=== PATIENT | male | born 1950 | race Two or more races ===

== ENCOUNTER → 2023-10-31 | Outpatient (CLI) | payer MEDICAID ==
[2023-10-31 10:54] LABS: Basophils # (auto) 0 10 ^3/uL (0-0.2); Basophils % (auto) 0.5 % (0.0-2.0); Eosinophils # (auto) 0.1 10 ^3/uL (0-0.8); Eosinophils % (auto) 1.7 % (0.0-7.0); Hematocrit 47.2 % (41.0-53.0); Hemoglobin 15.9 g/dL (13.5-17.5); Lymphocytes # (auto) 1.8 10 ^3/uL (0.4-5.4); Lymphocytes % (auto) 31.7 % (10.0-50.0); Mean Corpuscular Hemoglobin 31.7 pg (28.0-32.0); Mean Corpuscular Hgb Conc. 33.8 g/dL (32.0-36.0); Mean Corpuscular Volume 93.9 fL (80.0-100.0); Monocytes # (auto) 0.4 10 ^3/uL (0-1.3); Monocytes % (auto) 7.8 % (0.0-12.0); Neutrophils # (auto) 3.4 10 ^3/uL (1.6-8.6); Neutrophils % (auto) 58.3 % (37.0-80.0); Nucleated Red Blood Cells % 0.3 %; Red Blood Cells 5.02 10^6/uL (4.5-5.90); Red Cell Distribution Width 13.8 % (11.8-14.3); White Blood Cell 5.8 10^3/uL (4.4-10.8)
[2023-10-31 11:23] LABS: Alanine Aminotransferase 23 U/L (7-40); Albumin 4.6 g/dL (3.2-4.8); Alkaline Phosphatase 171 U/L (46-116); Anion Gap 7 (5-15); Aspartate Aminotransferase 23 U/L (13-40); BUN/Creatinine Ratio 16.2 (10.0-20.0); Blood Urea Nitrogen 16 mg/dL (9-23); Calcium 9.8 mg/dL (8.5-10.1); Carbon Dioxide 28 mmol/L (20-30); Chloride 107 mmol/L (98-107); Cholesterol 181 mg/dL (< 200); Glucose 103 mg/dL (74-106); HDL Cholesterol 34 mg/dL (40-59); LDL Cholesterol 128 mg/dL (< 100); Potassium 4.3 mmol/L (3.5-5.1); Sodium 142 mmol/L (136-145); Triglycerides 136 mg/dL (< 150)
[2023-10-31 11:24] LABS: Bilirubin, Total 0.7 mg/dL (0.2-1.0); Total Protein 7.8 g/dL (5.7-8.2)
[2023-10-31 11:55] LABS: Urine Bacteria NONE SEEN /hpf (None Seen); Urine Blood Negative /uL (Negative); Urine Clarity Clear (Clear); Urine Color Yellow (Yellow); Urine Hyaline Cast FEW /lpf (0 - 2); Urine Mucus FEW (None Seen); Urine Protein, UAD TRACE (Negative); Urine Specific Gravity 1.029 (1.001-1.035); Urine WBC <1 /hpf (0 - 3); Urine pH 5.5 (5.0-8.0)
[2023-11-01 09:20] LABS: PSA Free 1.21 ng/mL; Prostate Specific Antigen 7.3 ng/mL (0.0-4.0)
== END | disposition home or self-care (01) ==
LOC: LAB 10:14
DX: Z12.5 Encounter for screening for malignant neoplasm of prostate (principal); Z12.11 Encounter for screening for malignant neoplasm of colon; Z00.01 Encounter for general adult medical examination with abnormal findings
CPT/HCPCS: 36415; 80053; 80061; 81001; 82306; 83036; 84153; 84154; 84443; 85025

== ENCOUNTER → 2023-11-04 | Outpatient (CLI) | payer MEDICAID | END | disposition home or self-care (01) | LOC: LAB 14:19 | DX: Z00.01 Encounter for general adult medical examination with abnormal findings (principal); Z12.11 Encounter for screening for malignant neoplasm of colon; Z12.5 Encounter for screening for malignant neoplasm of prostate | CPT/HCPCS: 82274 ==

== ENCOUNTER → 2023-12-18 | Outpatient (CLI) | payer MEDICAID ==
[2023-12-19 08:06] LABS: PSA Free 1.33 ng/mL; Prostate Specific Antigen 7.4 ng/mL (0.0-4.0)
== END | disposition home or self-care (01) ==
LOC: LAB 09:24
DX: R97.20 Elevated prostate specific antigen [PSA] (principal)
CPT/HCPCS: 84153; 84154

== ENCOUNTER → 2024-03-08 | Outpatient (CLI) | payer MEDICAID ==
[2024-03-08 09:34] LABS: Urine Bacteria None Seen /hpf (None Seen)
[2024-03-08 09:41] LABS: Basophils # (auto) 0 10 ^3/uL (0-0.2); Basophils % (auto) 0.5 % (0.0-2.0); Eosinophils # (auto) 0.1 10 ^3/uL (0-0.8); Eosinophils % (auto) 2.3 % (0.0-7.0); Hematocrit 45.5 % (41.0-53.0); Hemoglobin 15.5 g/dL (13.5-17.5); Lymphocytes # (auto) 2.2 10 ^3/uL (0.4-5.4); Lymphocytes % (auto) 40.3 % (10.0-50.0); Mean Corpuscular Hemoglobin 31.2 pg (28.0-32.0); Mean Corpuscular Hgb Conc. 33.9 g/dL (32.0-36.0); Mean Corpuscular Volume 91.9 fL (80.0-100.0); Monocytes # (auto) 0.5 10 ^3/uL (0-1.3); Monocytes % (auto) 8.9 % (0.0-12.0); Neutrophils # (auto) 2.7 10 ^3/uL (1.6-8.6); Nucleated Red Blood Cells % 0.4 %; Red Blood Cells 4.95 10^6/uL (4.5-5.90); Red Cell Distribution Width 14.1 % (11.8-14.3); White Blood Cell 5.6 10^3/uL (4.4-10.8)
[2024-03-08 10:00] LABS: Urine Blood TRACE /uL (Negative); Urine Clarity Clear (Clear); Urine Color Yellow (Yellow); Urine Mucus FEW (None Seen); Urine Protein, UAD TRACE (Negative); Urine Specific Gravity 1.032 (1.001-1.035); Urine Urobilinogen Normal (Negative); Urine WBC <1 /hpf (0 - 3); Urine pH 5.5 (5.0-9.0)
[2024-03-08 10:24] LABS: Alanine Aminotransferase 15 U/L (7-40); Alkaline Phosphatase 170 U/L (46-116); Anion Gap 7 (5-15); BUN/Creatinine Ratio 17.4 (10.0-20.0); Blood Urea Nitrogen 15 mg/dL (9-23); Calcium 9.7 mg/dL (8.5-10.1); Carbon Dioxide 26 mmol/L (20-30); Chloride 109 mmol/L (98-107); Glucose 110 mg/dL (74-106); LDL Cholesterol 107 mg/dL (< 100); Potassium 3.8 mmol/L (3.5-5.1); Sodium 142 mmol/L (136-145); Triglycerides 74 mg/dL (< 150)
[2024-03-08 10:25] LABS: Albumin 4.3 g/dL (3.2-4.8); Aspartate Aminotransferase 14 U/L (13-40); Bilirubin, Total 0.5 mg/dL (0.2-1.0); Cholesterol 154 mg/dL (< 200); HDL Cholesterol 39 mg/dL (40-59); Total Protein 7.3 g/dL (5.7-8.2)
== END | disposition home or self-care (01) ==
LOC: LAB 09:22
PROVIDERS: ATTEND Student in an Organized Health Care Education/Training Program
DX: I10 Essential (primary) hypertension (principal); E78.5 Hyperlipidemia, unspecified; E55.9 Vitamin D deficiency, unspecified
CPT/HCPCS: 36415; 80053; 80061; 81001; 82306; 83036; 85025

== ENCOUNTER → 2025-03-15 | Outpatient (CLI) | payer MEDICAID ==
[2025-03-15 09:10] LABS: Urine Bacteria None Seen /hpf (None Seen)
[2025-03-15 09:16] LABS: Basophils # (auto) 0 10 ^3/uL (0-0.2); Basophils % (auto) 0.4 % (0.0-2.0); Eosinophils # (auto) 0.1 10 ^3/uL (0-0.8); Eosinophils % (auto) 2.5 % (0.0-7.0); Lymphocytes # (auto) 1.9 10 ^3/uL (0.4-5.4); Lymphocytes % (auto) 35.6 % (10.0-50.0); Mean Corpuscular Hemoglobin 31.2 pg (28.0-32.0); Mean Corpuscular Hgb Conc. 34.1 g/dL (32.0-36.0); Mean Corpuscular Volume 91.5 fL (80.0-100.0); Monocytes # (auto) 0.5 10 ^3/uL (0-1.3); Monocytes % (auto) 8.8 % (0.0-12.0); Neutrophils # (auto) 2.8 10 ^3/uL (1.6-8.6); Neutrophils % (auto) 52.7 % (37.0-80.0); Nucleated Red Blood Cells % 0.2 %; Platelet Count (auto) 219 10^3/uL (140-450); Red Blood Cells 5.13 10^6/uL (4.5-5.90); Red Cell Distribution Width 13.7 % (11.8-14.3); White Blood Cell 5.3 10^3/uL (4.4-10.8)
[2025-03-15 09:27] LABS: Urine Blood Negative /uL (Negative); Urine Clarity Clear (Clear); Urine Color Yellow (Yellow); Urine Mucus FEW (None Seen); Urine Protein, UAD Negative (Negative); Urine Specific Gravity 1.027 (1.001-1.035); Urine Squamous Epithelial Cell None Seen /hpf (<5); Urine Urobilinogen Normal (Negative); Urine WBC 1 /HPF (0-3); Urine pH 5.5 (5.0-9.0)
[2025-03-15 09:37] LABS: Alanine Aminotransferase 29 U/L (7-40); Albumin 4.5 g/dL (3.2-4.8); Alkaline Phosphatase 150 U/L (46-116); Anion Gap 10 (5-15); Aspartate Aminotransferase 18 U/L (13-40); BUN/Creatinine Ratio 19.5 (10.0-20.0); Blood Urea Nitrogen 16 mg/dL (9-23); Calcium 10.3 mg/dL (8.7-10.4); Carbon Dioxide 26 mmol/L (20-31); Chloride 107 mmol/L (98-107); Cholesterol 189 mg/dL (< 200); Glucose 121 mg/dL (74-106); HDL Cholesterol 37 mg/dL (40-59); LDL Cholesterol 140 mg/dL (< 100); Potassium 3.9 mmol/L (3.5-5.1); Sodium 143 mmol/L (136-145); Total Protein 7.3 g/dL (5.7-8.2); Triglycerides 132 mg/dL (< 150)
[2025-03-15 09:38] LABS: Bilirubin, Total 0.7 mg/dL (0.2-1.0)
[2025-03-16 08:07] LABS: PSA Free 1.49 ng/mL; Prostate Specific Antigen 9.5 ng/mL (0.0-4.0)
[2025-03-16 10:52] LABS: Hepatitis B Core Total AB Negative (Negative)
[2025-03-16 12:19] LABS: Hepatitis A Total Antibody Positive (Negative); Hepatitis B Surface Antibody Negative (Negative); Hepatitis B Surface Antigen Negative (Negative); Hepatitis C Antibody Negative (Negative)
== END | disposition home or self-care (01) ==
LOC: LAB 08:30
PROVIDERS: ATTEND Nurse Practitioner Family
DX: I10 Essential (primary) hypertension (principal); Z12.11 Encounter for screening for malignant neoplasm of colon; Z12.5 Encounter for screening for malignant neoplasm of prostate; Z11.3 Encounter for screening for infections with a predominantly sexual mode of transmission; Z00.01 Encounter for general adult medical examination with abnormal findings
CPT/HCPCS: 36415; 80053; 80061; 81001; 83036; 84153; 84154; 84443; 85025; 86703; 86704; 86706; 86708; 86780; 86803; 87340

== ENCOUNTER 2025-03-20 16:42 | Emergency (ER) | payer MEDICAID, OTHER ==
[~2025-03-20] VITALS: Ht 167.6 cm; Wt 75.4 kg
--- NOTE | 2025-03-20 16:58 | ECG ---
[facility] Test Date: 2025-03-20 Test Time: 16:54:07 Pat Name: HAYLEE CHAUHAN Department: ED Room: Gender: M [employer] Titles: Cierra : 1950 Requested By: JAIME MUIR Order Number: [id number] Reading MD: Miguel King Measurements Intervals Ivor Rate: 70 P: -70 UT: 97 QRS: 111 QRSD: 115 T: -7 QT: 399 QTc: 431 Interpretive Statements Sinus or ectopic atrial rhythm Short UT interval Nonspecific intraventricular conduction delay Electronically Signed On 03-20-2025 22:37:54 PDT by Miguel King Please click the below link to view image of tracing.
[2025-03-20 17:15] LABS: Urine Bacteria None Seen /hpf (None Seen)
--- NOTE | 2025-03-20 17:16 | ED.PDOC ---
History of Present Illness HPI Comments 74-year-old male presents with a chief complaint of abdominal pain x 5 days with associated diarrhea and nausea. Patient reports that his pain is localized to his epigastric region, radiating bilateral mid and lower quadrants, bilateral flanks and low back, describes as cramping, and rates his pain a 8/10. Patient states that he took three tablets of antibiotics at home, possibly Tetracycline, with no relief. Patient denies any fever, urinary symptoms, vomiting or bloody stool. Chief Complaint: Abdominal Pain Time Seen by MD: 16:52 Primary Care Provider: UNKNOWN Reviewed Notes: Medications, Allergies Allergies: Coded Allergies: NO KNOWN ALLERGIES (Unverified , 03/20/25) Home Meds Active Scripts Loperamide Hcl (Imodium) 2 Mg Cp, 2 MG PO Q6HP PRN, #20 CAP prn diarrhea Prov:JAIME BENTLEY MD 03/20/25 Acetaminophen (Tylenol Extra Strength) 500 Mg Tab, 1000 MG PO Q6HP PRN, #30 TAB prn pain or fever Prov:JAIME BENTLEY MD 03/20/25 Ondansetron Odt 4MG Tab (ZOFRAN PO) 4 Mg Tb, 4 MG PO TID PRN, #30 TAB prn nausea/vomiting ODT TAB-DISSOLVE IN MOUTH, THEN SWALLOW Prov:JAIME BENTLEY MD 03/20/25 Metronidazole (Flagyl) 500 Mg Tab, 1 TAB PO TID for 10 Days, #30 TAB Prov:JAIME BENTLEY MD 03/20/25 Ciprofloxacin Hcl (Cipro) 500 Mg Tab, 1 TAB PO BID for 10 Days, #20 TAB Prov:JAIME BENTLEY MD 03/20/25 Information Source: Patient Mode of Arrival: Ambulatory Severity: Moderate Timing: Days Duration: Since onset Prehospital treatment: None Past Medical History PAST MEDICAL HISTORY: Denies Surgical History: Appendectomy Surgical History (Other): Intestinal fistula repair Family History Family History: Reviewed,noncontributory to illness Social History Smoker: Non-Smoker Alcohol: Denies ETOH Use Drugs: Denies Drug Use Lives In: Home Constitutional: denies: chills, diaphoresis, fatigue, fever, malaise, sweats, weakness, others EENTM: denies: blurred vision, double vision, ear bleeding, ear discharge, ear drainage, ear pain, ear ringing, eye pain, eye redness, hearing loss, mouth pain, mouth swelling, nasal discharge, nose bleeding, nose congestion, nose p ain, photophobia, tearing, throat pain, throat swelling, voice changes, others Respiratory: denies: cough, hemoptysis, orthopnea, SOB at rest, shortness of breath, SOB with excertion, stridor, wheezing, others Cardiovascular: denies: chest pain, dizzy spells, diaphoresis, Dyspnea on exertion, edema, irregular heart beat, left arm pain, lightheadedness, palpitations, PND, syncope, others Gastrointestinal: reports: abdominal pain, diarrhea, nausea; denies: abdomen distended, blood streaked bowels, constipated, dysphagia, difficulty swallowing, hematemesis, melena, poor appetite, poor fluid intake, rectal bleeding, rectal pain, vomiting, others Genitourinary: denies: burning, dysuria, flank pain, frequency, hematuria, incontinence, penile discharge, penile sore, pain, testicle pain, testicle swelling, urgency, others Neurological: denies: dizziness, fainting, headache, left sided numbness, left sided weakness, numbness, paresthesia, pre-existing deficit, right sided n umbness, right sided weakness, seizure, speech problems, tingling, tremors, weakness, others Musculoskeletal: denies: back pain, gout, joint pain, joint swelling, muscle pain, muscle stiffness, neck pain, others Integumetry: denies: bruises, change in color, change in hair/nails, dryness, laceration, lesions, lumps, rash, wounds, others Allergic/Immunocompromised: denies: Difficulty Healing, Frequent Infections, Hives, Itching, others Hematologic/Lymphatic: denies: anemia, blood clots, easy bleeding, easy bruising, swollen glands, others Endocrine: denies: excessive hunger, excessive sweating, excessive thirst, excessive urination, flushing, intolerance to cold, intolerance to heat, unexplained weight gain, unexplained weight loss, others Psychiatric: denies: anxiety, bipolar disorder, depression, hopeless, panic disorder, schizophrenia, sleepless, suicidal, others All Other Systems: Reviewed and Negative Physical Exam General Appearance: No Apparent Distress HEENT: Other (Pupils and face symmetric. Moist mucous membranes.) Neck: Full Range of Motion, Normal Inspection Respiratory: Lungs Clear, No Accessory Muscle Use, No Respiratory Distress, Normal Breath Sounds Cardiovascular: No Edema, No JVD, Regular Rate/Rhythm Breast Exam: Deferred Gastrointestinal: Diffuse, Soft, Tenderness Genitalia: Deferred Pelvic: Deferred Rectal: Deferred Extremities: Normal inspection, Normal range of motion, Non-tender, No pedal edema Neurologic: Alert (Oriented x4), Normal Affect, Normal Mood, Other (Ambulatory) Cerebellar Function: NOT DONE Reflexes: NOT DONE Skin: Dry, Normal Color, Warm Lymphatic: NOT DONE Was a procedure done? Was a procedure done?: No EKG EKG : Comments Sinus rhythm, rate 70, normal intervals, normal axis, normal QRS, nonspecific T changes. Differential Dx Considerations may include: Gastritis, enteritis, biliary tract disease, pancreatitis, UTI, electrolyte imbalance, hypovolemia/dehydration, colitis, diverticulitis, among others X-Ray, Labs, Meds, VS Vital Signs Date Time Temp Pulse Resp B/P (MAP) Pulse Ox O2 Delivery O2 Flow Rate FiO2 03/20/25 20:45 Room Air* 0 21 03/20/25 18:52 98.4 61 16 131/65 (87) 98 98.4 03/20/25 18:52 61 17 98 Room Air 03/20/25 16:54 70 03/20/25 16:42 97.8 74 20 141/63 (89) 97 97.8 Lab Test 03/20/25 18:30 03/20/25 17:30 03/20/25 17:00 Range/Units Troponin I High Sensitivity 13 14 </=54 ng/L White Blood Count 5.3 4.4-10.8 10^3/uL Red Blood Count 5.19 4.5-5.90 10^6/uL Hemoglobin 16.3 13.5-17.5 g/dL Hematocrit 47.1 41.0-53.0 % Mean Corpuscular Volume 90.7 80.0-100.0 fL Mean Corpuscular Hemoglobin 31.3 28.0-32.0 pg Mean Corpuscular Hemoglobin Concent 34.6 32.0-36.0 g/dL Red Cell Distribution Width 13.8 11.8-14.3 % Platelet Count 245 140-450 10^3/uL Mean Platelet Volume 7.9 6.9-10.8 fL Neutrophils (%) (Auto) 53.8 37.0-80.0 % Lymphocytes (%) (Auto) 34.3 10.0-50.0 % Monocytes (%) (Auto) 10.4 0.0-12.0 % Eosinophils (%) (Auto) 1.1 0.0-7.0 % Basophils (%) (Auto) 0.4 0.0-2.0 % Neutrophils # (Auto) 2.9 1.6-8.6 10 ^3/uL Lymphocytes # (Auto) 1.8 0.4-5.4 10 ^3/uL Monocytes # (Auto) 0.5 0-1.3 10 ^3/uL Eosinophils # (Auto) 0.1 0-0.8 10 ^3/uL Basophils # (Auto) 0 0-0.2 10 ^3/uL Nucleated Red Blood Cells 0.1 % Sodium Level 144 136-145 mmol/L Potassium Level 3.7 3.5-5.1 mmol/L Chloride Level 111 H 98-107 mmol/L Carbon Dioxide Level 25 20-31 mmol/L Anion Gap 8 5-15 Blood Urea Nitrogen 18 9-23 mg/dL Creatinine 0.90 0.700-1.30 mg/dL Glomerular Filtration Rate Calc 90 >90 mL/min BUN/Creatinine Ratio 20.0 10.0-20.0 Serum Glucose 104 74-106 mg/dL Lactic Acid Level 1.4 0.4-2.0 mmol/L Calcium Level 9.7 8.7-10.4 mg/dL Total Bilirubin 0.7 0.2-1.0 mg/dL Aspartate Amino Transferase (AST) 19 13-40 U/L Alanine Aminotransferase (ALT) 29 7-40 U/L Alkaline Phosphatase 152 H 46-116 U/L Total Protein 7.5 5.7-8.2 g/dL Albumin 4.7 3.2-4.8 g/dL Lipase 51 12-53 U/L Urine Color Yellow Yellow Urine Clarity Clear Clear Urine pH 5.5 5.0-9.0 Urine Specific Mcgraws 1.036 H 1.001-1.035 Urine Protein Trace H Negative Urine Ketones Negative Negative Urine Blood Trace H Negative /uL Urine Nitrite Negative Negative Urine Bilirubin Negative Negative Urine Urobilinogen Normal Negative mg/dL Urine Leukocyte Esterase Negative Negative /uL Urine RBC 1 0 - 3 /hpf Urine Microscopic WBC 1 0-3 /HPF Urine Squamous Epithelial Cells Few <5 /hpf Urine Bacteria None seen None Seen /hpf Urine Mucus Few None Seen Urine Glucose Normal Normal mg/dL Current Medications Medications (Trade) Dose Ordered Sig/Rodger Route Start Time Stop Time Status Last Admin Sodium Chloride 2,000 ml @ 1,000 mls/hr Q2H ONCE IV 03/20/25 17:00 03/20/25 18:59 DC 03/20/25 18:55 Pantoprazole Sodium (Protonix) 40 mg ONCE ONCE IV 03/20/25 17:00 03/20/25 17:01 DC 03/20/25 19:09 PATIENT: KAYLEEN MCKEONT: [id number] UNIT: [id number] : 1950 LOC: ER ROOM / BED: / AGE / SEX: 74 / M ADM STATUS: REG ER SERVICE 1651 ORDERING PHYSICIAN: JAIME BENTLEY MD PROCEDURE(s): ABPL - CT AB PEL WO CON-NO ORAL OR IV REASON: upper abd pain radiating to lower abd, diarrhea ORDER NUMBER(s): [id number], ACCESSION NUMBER(s): [id number] Exam: CT CT AB PEL WO CON-NO ORAL OR IV History: upper abd pain radiating to lower abd, diarrhea Comparison Study: None Technique: Multidetector spiral CT of the abdomen was performed from lung bases to pubic symphysis. Imaging was performed without IV contrast. Axial, coronal and sagittal multiplanar reformats were obtained from the axial data set by the technologist. Radiation Dose : 1. Abdomen/Pelvis: CTDIvol 11.09 mGy, DLP 613.88 mGy*cm. Findings: Evaluation of solid organs is limited due to lack of intravenous contrast use. Lung Bases: Mild bibasilar dependent atelectasis. Minimal calcification at the aortic valve. The visualized heart is otherwise unremarkable. Liver: The liver is normal in size. There is a 1.2 x 0.8 cm round hypodensity i n the left hepatic lobe which attenuates at 20 Hounsfield units (series 601, image 33). Gallbladder and Biliary Tree: Unremarkable Spleen: Unremarkable Pancreas: The pancreas is grossly normal in appearance. Adrenal Glands: Unremarkable Kidneys: No evidence of hydronephrosis or renal calculi. There is a 1.9 x 1.2 by 2.1 cm exophytic density from the left kidney with peripheral calcification and apparent internal fluid density. Bladder: Grossly unremarkable for degree of distention. Bowel: The stomach is poorly distended with heterogenous internal contents. Small bowel and colon are normal in caliber and distribution. The appendix is not visualized; however, no secondary findings of acute appendicitis identified. Ascites: Absent Lymphadenopathy: No mesenteric, retroperitoneal or periportal lymphadenopathy. Abdominal Wall and Mesentery: Unremarkable. Vasculature: The visualized abdominal aorta is normal in size and caliber. Evaluation of abdominal and pelvic vessels is limited due to lack of intravenous contrast. Pelvic Organs: Unremarkable Musculoskeletal: No evidence of acute osseous abnormalities. Advanced degen erative changes of the sacroiliac joints bilaterally. Thin bridging anterior vertebral osteophytes versus syndesmophytes throughout the visualized spine. There is fusion in the thoracic spinous processes. IMPRESSION: 1. No acute abdominal or pelvic findings. 2. Left renal exophytic density with peripheral calcification. This may represent an atypical cyst. Recommend contrast-enhanced CT to exclude an enhancing component. 3. Small left hepatic hypodensity is favored to represent a cyst. 4. Degeneration in the spine and sacroiliac joints is likely due to osteoarthritis although ankylosing spondylitis is also possible. Radiation optimization: All CT scans at this facility use at least one of these dose optimization techniques: automated exposure control mA and/or kV adjustment per patient size (includes targeted exams where dose is matched to clinical indication) or iterative reconstruction. X-Ray, Labs, Meds, VS Comment 74-year-old male with a history of appendectomy and fistula repair complaining of upper abdominal pain radiating diffusely, associated with nausea and diarrhea Vitals remarkable for BP 141/63 Exam remarkable for mild diffuse abdominal tenderness to palpation Rhythm strip independently interpreted by me: Sinus rhythm, rate 70, no ectopy. CT abdomen and pelvis IMPRESSION: 1. No acute abdominal or pelvic findings. 2. Left renal exophytic density with peripheral calcification. This may represent an atypical cyst. Recommend contrast-enhanced CT to exclude an enhancing component. 3. Small left hepatic hypodensity is favored to represent a cyst. 4. Degeneration in the spine and sacroiliac joints is likely due to osteoarthritis although ankylosing spondylitis is also possible. CBC normal, CMP, lipase, lactate, troponin and UA unremarkable Patient treated with the following in the ED: 1 L 0.9 normal saline IV bolus, morphine 4 mg IV, Zofran 4 mg IV, Protonix 40 mg IV with improvement of symptoms. Hospitalization was considered, however patient had rapid improvement of symptoms treatment in the ED, workup essentially unremarkable, and I no longer feel hospitalization is necessary. Patient now appears stable for discharge with close outpatient follow up with his primary physician. Rx Cipro, Flagyl, Zofran, Tylenol, Imodium Time of 1ST Reevaluation: 17:22 Reevaluation 1ST: Unchanged Patient Education/Counseling: Diagnosis, Treatment Family Education/Counseling: No Family Present Sepsis Sepsis Reasesment Focused Exam Orders: Laboratory Tests 03/20/25 17:30: Lactic Acid Level 1.4 Departure 1 Departure Time of Disposition: 18:36 Impression: Primary Impression: Abdominal pain Qualified Codes: R10.9 - Unspecified abdominal pain Additional Impression: Diarrhea Qualified Codes: R19.7 - Diarrhea, unspecified Disposition: 01 HOME / SELF CARE / HOMELESS Condition: Stable Additional Instructions: Your blood and urine tests were unremarkable. Your CT scan did not show any finding that would explain your symptoms. There was an incidental finding of a possible cyst on your left kidney which should be followed up by your primary doctor. I have enclosed the report below. I have prescribed antibiotics and medication for your symptoms. Follow up with her primary doctor in 1-2 days. Return to ER for persistent or worsening symptoms. [place] [address] Ph: [phone] DIAGNOSTIC IMAGING Diagnostic Imaging Report : [id number] Signed PATIENT: HAYLEE MCKEON ACCT: [id number] UNIT: [id number] : 1950 LOC: ER ROOM / BED: / AGE / SEX: 74 / M ADM STATUS: REG ER SERVICE 1651 ORDERING PHYSICIAN: JAIME BENTLEY MD PROCEDURE(s): ABPL - CT AB PEL WO CON-NO ORAL OR IV REASON: upper abd pain radiating to lower abd, diarrhea ORDER NUMBER(s): [id number], ACCESSION NUMBER(s): [id number] Exam: CT CT AB PEL WO CON-NO ORAL OR IV History: upper abd pain radiating to lower abd, diarrhea Comparison Study: None Technique: Multidetector spiral CT of the abdomen was performed from lung bases to pubic symphysis. Imaging was performed without IV contrast. Axial, coronal and sagittal multiplanar reformats were obtained from the axial data set by the technologist. Radiation Dose : 1. Abdomen/Pelvis: CTDIvol 11.09 mGy, DLP 613.88 mGy*cm. Findings: Evaluation of solid organs is limited due to lack of intravenous contrast use. Lung Bases: Mild bibasilar dependent atelectasis. Minimal calcification at the aortic valve. The visualized heart is otherwise unremarkable. Liver: The liver is normal in size. There is a 1.2 x 0.8 cm round hypodensity in the left hepatic lobe which attenuates at 20 Hounsfield units (series 601, image 33). Gallbladder and Biliary Tree: Unremarkable Spleen: Unremarkable Pancreas: The pancreas is grossly normal in appearance. Adrenal Glands: Unremarkable Kidneys: No evidence of hydronephrosis or renal calculi. There is a 1.9 x 1.2 by 2.1 cm exophytic density from the left kidney with peripheral calcification and apparent internal fluid density. Bladder: Grossly unremarkable for degree of distention. Bowel: The stomach is poorly distended with heterogenous internal contents. Small bowel and colon are normal in caliber and distribution. The appendix is not visualized; however, no secondary findings of acute appendicitis identified. Ascites: Absent Lymphadenopathy: No mesenteric, retroperitoneal or periportal lymphadenopathy. Abdominal Wall and Mesentery: Unremarkable. Vasculature: The visualized abdominal aorta is normal in size and caliber. Evaluation of abdominal and pelvic vessels is limited due to lack of intravenous contrast. Pelvic Organs: Unremarkable Musculoskeletal: No evidence of acute osseous abnormalities. Advanced degenerative changes of the sacroiliac joints bilaterally. Thin bridging anterior vertebral osteophytes versus syndesmophytes throughout the visualized spine. There is fusion in the thoracic spinous processes. IMPRESSION: 1. No acute abdominal or pelvic findings. 2. Left renal exophytic density with peripheral calcification. This may represent an atypical cyst. Recommend contrast-enhanced CT to exclude an enhancing component. 3. Small left hepatic hypodensity is favored to represent a cyst. 4. Degeneration in the spine and sacroiliac joints is likely due to osteoarthritis although ankylosing spondylitis is also possible. Radiation optimization: All CT scans at this facility use at least one of these dose optimization techniques: automated exposure control mA and/or kV adjustment per patient size (includes targeted exams where dose is matched to clinical indication) or iterative reconstruction. e-Prescriptions Loperamide Hcl (Imodium) 2 Mg Cp 2 MG PO Q6HP PRN, #20 CAP prn diarrhea Prov: JAIME BENTLEY MD 03/20/25 Acetaminophen (Tylenol Extra Strength) 500 Mg Tab 1000 MG PO Q6HP PRN, #30 TAB prn pain or fever Prov: JAIME BNETLEY MD 03/20/25 Ondansetron Odt 4MG Tab (ZOFRAN PO) 4 Mg Tb 4 MG PO TID PRN, #30 TAB prn nausea/vomiting ODT TAB-DISSOLVE IN MOUTH, THEN SWALLOW Prov: JAIME BENTLEY MD 03/20/25 Metronidazole (Flagyl) 500 Mg Tab 1 TAB PO TID for 10 Days, #30 TAB Prov: JAIME BENTLEY MD 03/20/25 Ciprofloxacin Hcl (Cipro) 500 Mg Tab 1 TAB PO BID for 10 Days, #20 TAB Prov: JAIME BENTLEY MD 03/20/25 Discharged With: Relative Critical Care Note Critical Care Time?: No Stability Stability form required: No Heart Score Heart Score: Heart Score Response (Comments) Value History N/A 0 EKG N/A 0 Age N/A 0 Risk Factors N/A 0 Troponin N/A 0 Total 0 I personally scribed for JAIME BENTLEY MD ([email or web address]) on 03/20/25 at 17:16. Electronically submitted by Sky Martínez ([email or web address]). JAIME BENTLEY MD Mar 20, 2025 17:16
[2025-03-20 17:23] LABS: Urine Blood TRACE /uL (Negative); Urine Clarity Clear (Clear); Urine Color Yellow (Yellow); Urine Mucus FEW (None Seen); Urine Protein, UAD TRACE (Negative); Urine Specific Gravity 1.036 (1.001-1.035); Urine Squamous Epithelial Cell FEW /hpf (<5); Urine Urobilinogen Normal (Negative); Urine WBC 1 /HPF (0-3); Urine pH 5.5 (5.0-9.0)
[2025-03-20 17:42] LABS: Basophils # (auto) 0 10 ^3/uL (0-0.2); Basophils % (auto) 0.4 % (0.0-2.0); Eosinophils # (auto) 0.1 10 ^3/uL (0-0.8); Eosinophils % (auto) 1.1 % (0.0-7.0); Hematocrit 47.1 % (41.0-53.0); Hemoglobin 16.3 g/dL (13.5-17.5); Lymphocytes # (auto) 1.8 10 ^3/uL (0.4-5.4); Lymphocytes % (auto) 34.3 % (10.0-50.0); Mean Corpuscular Hemoglobin 31.3 pg (28.0-32.0); Mean Corpuscular Hgb Conc. 34.6 g/dL (32.0-36.0); Mean Corpuscular Volume 90.7 fL (80.0-100.0); Monocytes # (auto) 0.5 10 ^3/uL (0-1.3); Monocytes % (auto) 10.4 % (0.0-12.0); Neutrophils # (auto) 2.9 10 ^3/uL (1.6-8.6); Neutrophils % (auto) 53.8 % (37.0-80.0); Nucleated Red Blood Cells % 0.1 %; Platelet Count (auto) 245 10^3/uL (140-450); Red Blood Cells 5.19 10^6/uL (4.5-5.90); Red Cell Distribution Width 13.8 % (11.8-14.3); White Blood Cell 5.3 10^3/uL (4.4-10.8)
[2025-03-20 18:06] LABS: Alanine Aminotransferase 29 U/L (7-40); Anion Gap 8 (5-15); Aspartate Aminotransferase 19 U/L (13-40); Blood Urea Nitrogen 18 mg/dL (9-23); Calcium 9.7 mg/dL (8.7-10.4); Carbon Dioxide 25 mmol/L (20-31); Glucose 104 mg/dL (74-106); Lipase 51 U/L (12-53); Potassium 3.7 mmol/L (3.5-5.1); Sodium 144 mmol/L (136-145); Total Protein 7.5 g/dL (5.7-8.2)
[2025-03-20 18:07] LABS: Albumin 4.7 g/dL (3.2-4.8); Bilirubin, Total 0.7 mg/dL (0.2-1.0)
[2025-03-20 18:08] LABS: Alkaline Phosphatase 152 U/L (46-116); Chloride 111 mmol/L (98-107)
--- NOTE | 2025-03-20 18:27 | DVH ---
Exam: CT CT AB PEL WO CON-NO ORAL OR IV History: upper abd pain radiating to lower abd, diarrhea Comparison Study: None Technique: Multidetector spiral CT of the abdomen was performed from lung bases to pubic symphysis. Imaging was performed without IV contrast. Axial, coronal and sagittal multiplanar reformats were ob tained from the axial data set by the technologist. Radiation Dose : 1. Abdomen/Pelvis: CTDIvol 11.09 mGy, DLP 613.88 mGy*cm. Findings: Evaluation of solid organs is limited due to lack of intravenous contrast use. Lung Bases: Mild bibasilar dependent atelectasis. Minimal calcification at the aortic valve. The visu alized heart is otherwise unremarkable. Liver: The liver is normal in size. There is a 1.2 x 0.8 cm round hypodensity in the left hepatic lo be which attenuates at 20 Hounsfield units (series 601, image 33). Gallbladder and Biliary Tree: Unremarkable Spleen: Unremarkable Pancreas: The pancreas is grossly normal in appearance. Adrenal Glands: Unremarkable Kidneys: No evidence of hydronephrosis or renal calculi. There is a 1.9 x 1.2 by 2.1 cm exophytic den sity from the left kidney with peripheral calcification and apparent internal fluid density. Bladder: Grossly unremarkable for degree of distention. Bowel: The stomach is poorly distended with heterogenous internal contents. Small bowel and colon are normal in caliber and distribution. The appendix is not visualized; however, no secondary findings of acute appendicitis identified. Ascites: Absent Lymphadenopathy: No mesenteric, retroperitoneal or periportal lymphadenopathy. Abdominal Wall and Mesentery: Unremarkable. Vasculature: The visualized abdominal aorta is normal in size and caliber. Evaluation of abdominal a nd pelvic vessels is limited due to lack of intravenous contrast. Pelvic Organs: Unremarkable Musculoskeletal: No evidence of acute osseous abnormalities. Advanced degenerative changes of the sa croiliac joints bilaterally. Thin bridging anterior vertebral osteophytes versus syndesmophytes throu ghout the visualized spine. There is fusion in the thoracic spinous processes. IMPRESSION: 1. No acute abdominal or pelvic findings. 2. Left renal exophytic density with peripheral calcification. This may represent an atypical cyst. Recommend contrast-enhanced CT to exclude an enhancing component. 3. Small left hepatic hypodensity is favored to represent a cyst. 4. Degeneration in the spine and sacroiliac joints is likely due to osteoarthritis although ankylosin g spondylitis is also possible. Radiation optimization: All CT scans at this facility use at least one of these dose optimization rahel hniques: automated exposure control mA and/or kV adjustment per patient size (includes targeted exam s where dose is matched to clinical indication) or iterative reconstruction.
[2025-03-20] MEDS ORDERED: CIPR-173 PO (18:42)
[2025-03-20] MEDS ORDERED: ACET-1304 PO (18:42)
[2025-03-20] MEDS ORDERED: LOPE2CAP16 PO (18:42)
[2025-03-20] MEDS ORDERED: ZOFR4T PO (18:42)
[2025-03-20] MEDS ORDERED: METR-344 PO (18:42)
[2025-03-20 18:52] VITALS: BP 131/65; PULSE 61; RESP 17; TEMP 98.4; O2SAT 98
[2025-03-20] MEDS: SODIUM CHLORIDE 0.9% 2,000 ML IV ONE (18:55)
[2025-03-20] MEDS: PANTOPRAZOLE 40 MG/10 ML VIAL INJ IV ONE (19:09)
[2025-03-20] MEDS: ONDANSETRON HCL 4 MG/2 ML VIAL IV ONE (19:10)
[2025-03-20] MEDS: MORPHINE SULFATE 4 MG/ML SYR/VIAL IV ONE (19:10)
== END 2025-03-20 20:56 | disposition home or self-care (01) ==
LOC: ER 16:42
DX: R10.13 Epigastric pain (principal); R11.0 Nausea; R19.7 Diarrhea, unspecified; M54.50 Low back pain, unspecified; Z90.49 Acquired absence of other specified parts of digestive tract; Z79.899 Other long term (current) drug therapy; Z98.890 Other specified postprocedural states
CPT/HCPCS: 36415; 74176; 80053; 81001; 83605; 83690; 84484; 85025; 93005; 96361; 96374; 99285; J2270; J2405; J2470; J7030

== ENCOUNTER 2025-03-24 08:48 | Outpatient (CLI) | payer OTHER ==
[~2025-03-24 08:48] MED LIST: ACET-1304 PO; CIPR-173 PO; LOPE2CAP16 PO; METR-344 PO; ZOFR4T PO
[2025-03-24 09:24] LABS: Urine Bacteria None Seen /hpf (None Seen)
[2025-03-24 09:34] LABS: Basophils # (auto) 0 10 ^3/uL (0-0.2); Basophils % (auto) 0.6 % (0.0-2.0); Eosinophils # (auto) 0.1 10 ^3/uL (0-0.8); Eosinophils % (auto) 1.9 % (0.0-7.0); Hematocrit 46.7 % (41.0-53.0); Hemoglobin 16.1 g/dL (13.5-17.5); Lymphocytes # (auto) 1.7 10 ^3/uL (0.4-5.4); Mean Corpuscular Hemoglobin 31.3 pg (28.0-32.0); Mean Corpuscular Hgb Conc. 34.6 g/dL (32.0-36.0); Mean Corpuscular Volume 90.4 fL (80.0-100.0); Monocytes # (auto) 0.4 10 ^3/uL (0-1.3); Monocytes % (auto) 8.6 % (0.0-12.0); Neutrophils # (auto) 2.7 10 ^3/uL (1.6-8.6); Neutrophils % (auto) 54.9 % (37.0-80.0); Nucleated Red Blood Cells % 0.3 %; Platelet Count (auto) 211 10^3/uL (140-450); Red Blood Cells 5.16 10^6/uL (4.5-5.90); Red Cell Distribution Width 13.8 % (11.8-14.3)
[2025-03-24 09:54] LABS: Alanine Aminotransferase 27 U/L (7-40); Albumin 4.4 g/dL (3.2-4.8); Anion Gap 8 (5-15); Aspartate Aminotransferase 16 U/L (13-40); BUN/Creatinine Ratio 17.2 (10.0-20.0); Blood Urea Nitrogen 15 mg/dL (9-23); Calcium 10.4 mg/dL (8.7-10.4); Carbon Dioxide 27 mmol/L (20-31); Cholesterol 148 mg/dL (< 200); Potassium 4.1 mmol/L (3.5-5.1); Sodium 144 mmol/L (136-145); Total Protein 7.1 g/dL (5.7-8.2); Triglycerides 76 mg/dL (< 150)
[2025-03-24 09:55] LABS: Bilirubin, Total 0.5 mg/dL (0.2-1.0)
[2025-03-24 09:57] LABS: Alkaline Phosphatase 146 U/L (46-116); Chloride 109 mmol/L (98-107); Glucose 112 mg/dL (74-106); HDL Cholesterol 32 mg/dL (40-59); LDL Cholesterol 108 mg/dL (< 100)
[2025-03-24 15:19] LABS: Urine Blood Negative /uL (Negative); Urine Clarity Clear (Clear); Urine Color Light-Yellow (Yellow); Urine Mucus FEW (None Seen); Urine Protein, UAD Negative (Negative); Urine Specific Gravity 1.018 (1.001-1.035); Urine Squamous Epithelial Cell None Seen /hpf (<5); Urine Urobilinogen Normal (Negative); Urine WBC < 1 /HPF (0-3)
[2025-03-25 08:07] LABS: PSA Free 1.37 ng/mL
== END 2025-03-24 17:00 | disposition home or self-care (01) ==
LOC: LAB 08:48
PROVIDERS: ATTEND Nurse Practitioner Family
DX: E55.9 Vitamin D deficiency, unspecified (principal); E78.5 Hyperlipidemia, unspecified; R97.20 Elevated prostate specific antigen [PSA]; R10.9 Unspecified abdominal pain; Z12.11 Encounter for screening for malignant neoplasm of colon
CPT/HCPCS: 36415; 80053; 80061; 81001; 82274; 82306; 83036; 84153; 84154; 84443; 85025

== ENCOUNTER 2025-05-01 11:14 | Inpatient (IN) | payer MEDICAID, OTHER ==
[~2025-05-01] VITALS: Ht 167.6 cm; Wt 74.9 kg
--- NOTE | 2025-05-01 12:01 | ED.PDOC ---
GI ASSESSMENT HPI Comments 74 y.o male with PMHx of HTN presents to the ED for a chief complaint of epigastric pain radiating to BL lower quadrants and to his back associated with nausea. Patient reports symptoms started intermittently 3 months ago but have been constant x 2 days. Patient describes pain as a burning pressure sensation with no alleviating factors. Patient reports similar episode 20 years ago in which he had a colonoscopy done and had some stones taken out, unknown from where. Patient denies any vomiting, diarrhea, fever, chills, chest pain. He denies any substance, alcohol or tobacco use. Chief Complaint: Back Pain Time Seen by MD: 11:47 Primary Care Provider: UNKNOWN Reviewed Notes: Nurses Notes, Medications, Allergies (No allergies to medications) Allergies: Coded Allergies: NO KNOWN ALLERGIES (Unverified , 03/20/25) Home Meds Active Scripts Loperamide Hcl (Imodium) 2 Mg Cp, 2 MG PO Q6HP PRN, #20 CAP prn diarrhea Prov:JAIME BENTLEY MD 03/20/25 Acetaminophen (Tylenol Extra Strength) 500 Mg Tab, 1000 MG PO Q6HP PRN, #30 TAB prn pain or fever Prov:JAIME BENTLEY MD 03/20/25 Ondansetron Odt 4MG Tab (ZOFRAN PO) 4 Mg Tb, 4 MG PO TID PRN, #30 TAB prn nausea/vomiting ODT TAB-DISSOLVE IN MOUTH, THEN SWALLOW Prov:JAIME BENTLEY MD 03/20/25 Metronidazole (Flagyl) 500 Mg Tab, 1 TAB PO TID for 10 Days, #30 TAB Prov:JAIME BENTLEY MD 03/20/25 Ciprofloxacin Hcl (Cipro) 500 Mg Tab, 1 TAB PO BID for 10 Days, #20 TAB Prov:JAIME BENTLEY MD 03/20/25 Information Source: Patient Mode of Arrival: Ambulatory Timing: Days, Months Duration: Since onset Quality: Burning Vomitus: None Stool: Normal Severity: Moderate Recent: None Recent Hx of: None Pain Location: Epigastric, RLQ, LLQ Modifying Factors: Nothing Associated sign and symptoms: Nausea, Abdominal Pain Past Medical History PAST MEDICAL HISTORY: HTN Surgical History: Appendectomy Family History Family History: Reviewed,noncontributory to illness Social History Smoker: Non-Smoker Alcohol: Denies ETOH Use Drugs: Denies Drug Use Lives In: Home Constitutional: denies: chills, diaphoresis, fatigue, fever, malaise, sweats, weakness, others EENTM: denies: blurred vision, double vision, ear bleeding, ear discharge, ear drainage, ear pain, ear ringing, eye pain, eye redness, hearing loss, mouth pain, mouth swelling, nasal discharge, nose bleeding, nose congestion, nose pain, photophobia, tearing, throat pain, throat swelling, voice changes, others Respiratory: denies: cough, hemoptysis, orthopnea, SOB at rest, shortness of breath, SOB with excertion, stridor, wheezing, others Cardiovascular: denies: chest pain, dizzy spells, diaphoresis, Dyspnea on exertion, edema, irregular heart beat, left arm pain, lightheadedness, palpitations, PND, syncope, others Gastrointestinal: reports: abdominal pain, nausea; denies: abdomen distended, blood streaked bowels, constipated, diarrhea, dysphagia, difficulty swallowing, hematemesis, melena, poor appetite, poor fluid intake, rectal bleeding, rectal pain, vomiting, others Genitourinary: denies: burning, dysuria, flank pain, frequency, hematuria, incontinence, penile discharge, penile sore, pain, testicle pain, testicle swelling, urgency, others Neurological: denies: dizziness, fainting, headache, left sided numbness, left sided weakness, numbness, paresthesia, pre-existing deficit, right sided numbness, right sided weakness, seizure, speech problems, tingling, tremors, weakness, others Musculoskeletal: denies: back pain, gout, joint pain, joint swelling, muscle pain, muscle stiffness, neck pain, others Integumetry: denies: bruises, change in color, change in hair/nails, dryness, laceration, lesions, lumps, rash, wounds, others Allergic/Immunocompromised: denies: Difficulty Healing, Frequent Infections, Hives, Itching, others Hematologic/Lymphatic: denies: anemia, blood clots, easy bleeding, easy bruising, swollen glands, others Endocrine: denies: excessive hunger, excessive sweating, excessive thirst, excessive urination, flushing, intolerance to cold, intolerance to heat, unexplained weight gain, unexplained weight loss, others Psychiatric: denies: anxiety, bipolar disorder, depression, hopeless, panic disorder, schizophrenia, sleepless, suicidal, others All Other Systems: Reviewed and Negative Physical Exam General Appearance: Moderate Distress HEENT: Normal ENT Inspection, Pharynx Normal, TMs Normal Neck: Full Range of Motion, Non-Tender, Normal, Normal Inspection Respiratory: Chest Non-Tender, Lungs Clear, No Accessory Muscle Use, No Respiratory Distress, Normal Breath Sounds Cardiovascular: No Edema, No JVD, No Murmur, No Gallop, Normal Peripheral Pulses, Regular Rate/Rhythm Breast Exam: Deferred Gastrointestinal: Epigastric, No Organomegaly, No Pulsatile Mass, Normal Bowel Sounds, Soft, Tenderness Genitalia: Deferred Pelvic: Deferred Rectal: Deferred Extremities: No calf tenderness, Normal capillary refill, Non-tender, No pedal edema Musculoskeletal : Apperance: Normal Neurologic: Alert, supervisor malted milk II-XII nml as Tested, Motor Weakness, Normal Affect, Normal Mood, No Sensory Deficits Cerebellar Function: Normal Reflexes: Normal Skin: Dry, Normal Color, Warm Lymphatic: No Adenopathy Was a procedure done? Was a procedure done?: No GI differential Dx Differential Diagnosis: Cholangitis, Cholecystitis, Gastroenteritis, Electrolyte Imbalance, Viral X-Ray, Labs, Meds, VS Vital Signs Date Time Temp Pulse Resp B/P (MAP) Pulse Ox O2 Delivery O2 Flow Rate FiO2 05/01/25 14:26 98.0 65 16 146/63 (90) 98 98.0 05/01/25 14:26 65 16 98 Room Air 05/01/25 11:47 98.1 63 16 136/75 (95) 98 98.1 05/01/25 11:40 67 Lab Test 05/01/25 12:38 Range/Units White Blood Count 5.7 4.4-10.8 10^3/uL Red Blood Count 4.96 4.5-5.90 10^6/uL Hemoglobin 16.0 13.5-17.5 g/dL Hematocrit 44.9 41.0-53.0 % Mean Corpuscular Volume 90.5 80.0-100.0 fL Mean Corpuscular Hemoglobin 32.1 H 28.0-32.0 pg Mean Corpuscular Hemoglobin Concent 35.5 32.0-36.0 g/dL Red Cell Distribution Width 13.8 11.8-14.3 % Platelet Count 214 140-450 10^3/uL Mean Platelet Volume 8.3 6.9-10.8 fL Neutrophils (%) (Auto) 60.2 37.0-80.0 % Lymphocytes (%) (Auto) 29.9 10.0-50.0 % Monocytes (%) (Auto) 8.6 0.0-12.0 % Eosinophils (%) (Auto) 0.9 0.0-7.0 % Basophils (%) (Auto) 0.4 0.0-2.0 % Neutrophils # (Auto) 3.5 1.6-8.6 10 ^3/uL Lymphocytes # (Auto) 1.7 0.4-5.4 10 ^3/uL Monocytes # (Auto) 0.5 0-1.3 10 ^3/uL Eosinophils # (Auto) 0.1 0-0.8 10 ^3/uL Basophils # (Auto) 0 0-0.2 10 ^3/uL Nucleated Red Blood Cells 0.1 % Sodium Level 143 136-145 mmol/L Potassium Level 3.5 3.5-5.1 mmol/L Chloride Level 107 98-107 mmol/L Carbon Dioxide Level 27 20-31 mmol/L Anion Gap 9 5-15 Blood Urea Nitrogen 18 9-23 mg/dL Creatinine 0.75 0.700-1.30 mg/dL Glomerular Filtration Rate Calc 95 >90 mL/min BUN/Creatinine Ratio 24.0 H 10.0-20.0 Serum Glucose 107 H 74-106 mg/dL Calcium Level 9.5 8.7-10.4 mg/dL Total Bilirubin 1.1 H 0.2-1.0 mg/dL Aspartate Amino Transferase (AST) 16 13-40 U/L Alanine Aminotransferase (ALT) 16 7-40 U/L Alkaline Phosphatase 165 H 46-116 U/L Total Protein 7.1 5.7-8.2 g/dL Albumin 4.4 3.2-4.8 g/dL Lipase 34 12-53 U/L RIGHT UPPER QUADRANT ABDOMINAL ULTRASOUND IMPRESSION: No acute findings as visualized. The patient's CBC is within normal limits The chemistry panel is limits The Lipase is within at this time, the patient is being admitted with a diagnosis of intractable abdominal pain and abdominal pain unknown etiology The patient was admitted Images Reviewed?: Images reviewed and evaluated by me Time of 1ST Reevaluation: 12:01 Reevaluation 1ST: Unchanged Patient Education/Counseling: Diagnosis, Treatment, Prognosis Family Education/Counseling: No Family Present SEPSIS Sepsis Screen Date sepsis recognized/suspect: May 01, 2025 Time Sepsis recognized/suspect: 111 Recent Procedure: No On Antibiotic Therapy: No Respiratory Rate >20: No Heart Rate >90: No Temp<36 C (96.8 F) or >38.3 C: No SBP <90 or MAP <65 mmHG: No New Acute Mental Status Change: No Is the patient on CPAP, BIPAP,: No Physician Orders Urinalysis (05/01/25 11:56) Heplock Iv (05/01/25 11:56) Gallbladder (05/01/25 11:56) Electrocardigram (05/01/25 12:20) Vital Signs Date Time Temp Pulse Resp B/P (MAP) Pulse Ox O2 Delivery O2 Flow Rate FiO2 05/01/25 14:26 98.0 65 16 146/63 (90) 98 98.0 05/01/25 14:26 65 16 98 Room Air 05/01/25 11:47 98.1 63 16 136/75 (95) 98 98.1 05/01/25 11:40 67 Laboratory Tests Test 05/01/25 12:38 White Blood Count 5.7 10^3/uL (4.4-10.8) Departure 1 Departure Time of Disposition: 15:37 Impression: Primary Impression: Intractable abdominal pain Additional Impression: Abdominal pain of unknown etiology Disposition: 09 ADMITTED INPATIENT Admit to: Med Surg Condition: Fair Critical Care Note Critical Care Time?: No Stability Stability form required: Yes Unstable for transfer: ED Physician Assesment (Clinical assesment) I personally scribed for JEANINE JONES MD ([email or web address]) on 05/01/25 at 12:01. Electronically submitted by Anne-Marie Jeronimo (Prim Laundry). I personally scribed for JEANINE JONES MD ([email or web address]) on 05/01/25 at 13:44. Electronically submitted by Anne-Marie Jeronimo (Prim Laundry). JEANINE JONES MD May 01, 2025 12:01
--- NOTE | 2025-05-01 13:10 | DVH ---
RIGHT UPPER QUADRANT ABDOMINAL ULTRASOUND CLINICAL HISTORY: pain COMPARISON: CT 03/20/2025 TECHNIQUE: Grayscale and color Doppler ultrasound imaging of the right upper quadrant is performed. FINDINGS: Pancreas: Obscured by artifact from bowel gas. Liver: Measures approximately 14.5 cm in length. No discrete hepatic lesions as visualized. The port al vein appears patent. Gallbladder: No sizable, shadowing calculi. No gallbladder wall thickening. No sonographic farooq's sign. Common bile duct: Nondilated. Right Kidney: Measures approximately 12.5 cm in length. No hydronephrosis. Right upper quadrant Inferior vena cava: Visualized portions appear grossly patent. IMPRESSION: No acute findings as visualized. HS:Y
[2025-05-01 13:35] LABS: Hematocrit 44.9 % (41.0-53.0); Hemoglobin 16.0 g/dL (13.5-17.5); Mean Corpuscular Hemoglobin 32.1 pg (28.0-32.0); Mean Corpuscular Volume 90.5 fL (80.0-100.0); Nucleated Red Blood Cells % 0.1 %
[2025-05-01 13:48] LABS: Alanine Aminotransferase 16 U/L (7-40); Albumin 4.4 g/dL (3.2-4.8); Anion Gap 9 (5-15); BUN/Creatinine Ratio 24.0 (10.0-20.0); Blood Urea Nitrogen 18 mg/dL (9-23); Calcium 9.5 mg/dL (8.7-10.4); Carbon Dioxide 27 mmol/L (20-31); Lipase 34 U/L (12-53); Sodium 143 mmol/L (136-145); Total Protein 7.1 g/dL (5.7-8.2)
[2025-05-01 13:49] LABS: Bilirubin, Total 1.1 mg/dL (0.2-1.0)
[2025-05-01 13:52] LABS: Alkaline Phosphatase 165 U/L (46-116); Chloride 107 mmol/L (98-107); Glucose 107 mg/dL (74-106); Potassium 3.5 mmol/L (3.5-5.1)
[2025-05-01] MEDS: SODIUM CHLORIDE 0.9% 500 ML IVB ONE (16:11)
[2025-05-01] MEDS: ONDANSETRON HCL 4 MG/2 ML VIAL IV ONE (16:12)
[2025-05-01] MEDS: PANTOPRAZOLE 40 MG/10 ML VIAL INJ IV ONE (16:12)
[2025-05-01 16:43] LABS: Urine Protein, UAD TRACE (Negative)
[2025-05-01 22:51] VITALS: RESP 18
--- NOTE | 2025-05-01 23:08 | DVHHP2 ---
History of Present Illness History of Present Illness Patient is 74 years old male with past medical history of hypertension-not taking any medication came with a complaint of abdominal pain. As per patient he has been having epigastric abdominal pain for last 3 months which got worse 2 days before. As per patient pain is in the epigastric region, 9/10, constant, burning, crampy in nature, intermittent, no aggravating or relieving factor. Patient reported nausea but no vomiting. Patient denied any fever, dysuria, chest pain or shortness of breath, palpitation, eating unusual food, dysarthria. He lab workup revealed lipase within normal limit, serum bilirubin 1.1, alkaline phosphatase 165, urinalysis negative for UTI. ultrasound of the liver is negative for acute abnormality. CT abdominal and pelvis revealed marked prostatomegaly, tiny fat containing umbilical hernia, bilateral atelectasis/scarring Past Medical History Hypertension Past Surgical History Appendectomy Family History None Past Social History Denies smoking/alcoholism/drug abuse, lives alone in a hose without electricity Home meds-denied taking any medication Review of Systems Review of Systems Allergy- NKDA Patient was seen today at the bedside. Cardiovascular- deny acute chest pain or shortness of breath or cough or palpitation Respiratory denies cough or short of breath or wheezing Gastrointestinal- denies any rectal bleeding, vomiting Musculoskeletal-denies acute joint swelling or tenderness or redness Neurological- denies acute dysarthria, dysphagia, change in vision Psychiatry- denies depression or SI or HI Skin- denies acute rash or purpura Allergies: Coded Allergies: NO KNOWN ALLERGIES (Unverified , 03/20/25) Medications Current Medications Medications Dose Ordered Sig/Rodger Route Start Time Stop Time Status Last Admin Dose Admin Sodium Chloride 1,000 ml @ 120 mls/hr Q8H20M IV 05/01/25 23:00 Enoxaparin Sodium 40 mg DAILY SC 05/02/25 10:00 Exam Vital Signs Vital Signs Date Time Temp Pulse Resp B/P (MAP) Pulse Ox O2 Delivery O2 Flow Rate FiO2 05/01/25 23:01 98.0 55 12 136/53 (80) 95 98.0 05/01/25 22:51 Room Air* 0 21 Exam General examination- awake, alert, oriented HEENT- PEERLA, no acute nasal discharge Cardiovascular- S1-S2 audible, rate and rhythm regular, no murmur Respiratory- CTAB, no wheeze or rhonchi Gastrointestinal-mild epigastric tenderness+, bowel sound+. Nondistended Musculoskeletal-no acute joint swelling or tenderness or redness Lower extremity- no leg edema Neurological- cranial nerves intact, no acute dysarthria or dysphagia Psychiatry- denies depression or SI or HI Skin- no acute rash or purpura Labs/Xrays Labs Test 05/01/25 16:27 05/01/25 12:38 Range/Units Urine Color Yellow Yellow Urine Clarity Clear Clear Urine pH 5.5 5.0-9.0 Urine Specific [place] 1.031 1.001-1.035 Urine Protein Trace H Negative Urine Ketones Trace Negative Urine Blood Negative Negative /uL Urine Nitrite Negative Negative Urine Bilirubin Negative Negative Urine Urobilinogen Normal Negative mg/dL Urine Leukocyte Esterase Negative Negative /uL Urine RBC 3 0 - 3 /hpf Urine Microscopic WBC 3 0-3 /HPF Urine Squamous Epithelial Cells None seen <5 /hpf Urine Bacteria None seen None Seen /hpf Urine Mucus Few None Seen Urine Glucose Normal Normal mg/dL White Blood Count 5.7 4.4-10.8 10^3/uL Red Blood Count 4.96 4.5-5.90 10^6/uL Hemoglobin 16.0 13.5-17.5 g/dL Hematocrit 44.9 41.0-53.0 % Mean Corpuscular Volume 90.5 80.0-100.0 fL Mean Corpuscular Hemoglobin 32.1 H 28.0-32.0 pg Mean Corpuscular Hemoglobin Concent 35.5 32.0-36.0 g/dL Red Cell Distribution Width 13.8 11.8-14.3 % Platelet Count 214 140-450 10^3/uL Mean Platelet Volume 8.3 6.9-10.8 fL Neutrophils (%) (Auto) 60.2 37.0-80.0 % Lymphocytes (%) (Auto) 29.9 10.0-50.0 % Monocytes (%) (Auto) 8.6 0.0-12.0 % Eosinophils (%) (Auto) 0.9 0.0-7.0 % Basophils (%) (Auto) 0.4 0.0-2.0 % Neutrophils # (Auto) 3.5 1.6-8.6 10 ^3/uL Lymphocytes # (Auto) 1.7 0.4-5.4 10 ^3/uL Monocytes # (Auto) 0.5 0-1.3 10 ^3/uL Eosinophils # (Auto) 0.1 0-0.8 10 ^3/uL Basophils # (Auto) 0 0-0.2 10 ^3/uL Nucleated Red Blood Cells 0.1 % Sodium Level 143 136-145 mmol/L Potassium Level 3.5 3.5-5.1 mmol/L Chloride Level 107 98-107 mmol/L Carbon Dioxide Level 27 20-31 mmol/L Anion Gap 9 5-15 Blood Urea Nitrogen 18 9-23 mg/dL Creatinine 0.75 0.700-1.30 mg/dL Glomerular Filtration Rate Calc 95 >90 mL/min BUN/Creatinine Ratio 24.0 H 10.0-20.0 Serum Glucose 107 H 74-106 mg/dL Calcium Level 9.5 8.7-10.4 mg/dL Total Bilirubin 1.1 H 0.2-1.0 mg/dL Aspartate Amino Transferase (AST) 16 13-40 U/L Alanine Aminotransferase (ALT) 16 7-40 U/L Alkaline Phosphatase 165 H 46-116 U/L Total Protein 7.1 5.7-8.2 g/dL Albumin 4.4 3.2-4.8 g/dL Lipase 34 12-53 U/L SEPSIS Sepsis Screen Date sepsis recognized/suspect: May 01, 2025 Time Sepsis recognized/suspect: 2252 Recent Procedure: No On Antibiotic Therapy: No Respiratory Rate >20: No Heart Rate >90: No Temp<36 C (96.8 F) or >38.3 C: No SBP <90 or MAP <65 mmHG: No New Acute Mental Status Change: No Is the patient on CPAP, BIPAP,: No Physician Orders Admit (05/01/25 22:57) Code Status (05/01/25 22:57) Sodium Chloride 0.9% (05/01/25 23:00) Enoxaparin Sodium (Lovenox) (05/02/25 10:00) Complete Blood Count (05/02/25 04:00) Comprehensive Metabolic Panel (05/02/25 04:00) Clear Liq Diet (05/02/25 Breakfast) Notify Of Changes From Base (05/01/25 22:57) Ct Ab Pel Wo Con-No Oral Or Iv (05/01/25 22:59) Thyroid Stimulating Hormone (05/01/25 23:01) Vital Signs Date Time Temp Pulse Resp B/P (MAP) Pulse Ox O2 Delivery O2 Flow Rate FiO2 05/01/25 23:01 98.0 55 12 136/53 (80) 95 98.0 05/01/25 22:51 18 Room Air* 0 21 05/01/25 21:45 98.0 61 20 132/54 (80) 98 98.0 05/01/25 20:50 98.0 56 20 138/50 (79) 98 98.0 05/01/25 18:49 97.5 61 20 145/50 (81) 96 97.5 05/01/25 16:12 98.4 61 16 169/88 (115) 98 98.4 Laboratory Tests Test 05/01/25 12:38 White Blood Count 5.7 10^3/uL (4.4-10.8) Medications Medications Dose Ordered Sig/Rodger Route Start Time Stop Time Status Last Admin Dose Admin Ondansetron HCl 4 mg ONCE ONCE IV 05/01/25 12:00 05/01/25 12:01 DC 05/01/25 16:12 4 MG Pantoprazole Sodium 40 mg ONCE ONCE IV 05/01/25 12:00 05/01/25 12:01 DC 05/01/25 16:12 40 MG Sodium Chloride 500 ml @ 500 mls/hr Q1H ONCE IVB 05/01/25 12:00 05/01/25 12:59 DC 05/01/25 16:11 500 MLS/HR Assessment/Plan Assessment/Plan Assessment and plan # intractable abdominal pain and nausea, rule out acute pancreatitis/acute gastritis/acute cholecystitis -lipase within normal limit -urinalysis negative for UTI -CT abdomen and pelvis-negative for acute cholecystitis, pancreatitis, diverticulitis, appendicitis -continue IV normal saline as prescribed -continue pain medication as prescribed # elevated bilirubin and alkaline phosphatase -continue monitoring hepatic panel # hypertension -monitor blood pressure # prostatomegaly -CT abdomen and pelvis revealed marked prostatomegaly -continue Flomax 0.4 0.4 mg p.o. daily # umbilical hernia -follow up outpatient with the primary care physician PCP-Dr. Smith Diet-clear liquid diet Goals of care, Code status full code ; discussed with >15 minutes PUD prophylaxis: Pantoprazole DVT prophylaxis: Lovenox Plan discussed with Dr. Evangelista , nursing staff, Total time spent on patient evaluation, chart review, assessment and plan, discussion discussion >35 minutes Plan discussed with: Patient, Other (RN) My Orders Orders - CARLOS LEO Procedure Category Date Status Time Admit ADMIT 05/01/25 Transmitted 22:57 Code Status CODE 05/01/25 Transmitted 22:57 Sodium Chloride 0.9% PHA 05/01/25 In Process 23:00 Enoxaparin Sodium PHA 05/02/25 In Process (Lovenox) 10:00 Complete Blood Count LAB 05/02/25 Verified 04:00 Comprehensive LAB 05/02/25 Verified Metabolic Panel 04:00 Clear Liq Diet DIET 05/02/25 Transmitted Breakfast Notify Of Changes SELVIN 05/01/25 In Process From Base 22:57 Ct Ab Pel Wo Con-No CT 05/01/25 Logged Oral Or Iv 22:59 Thyroid Stimulating LAB 05/01/25 In Process Hormone 23:01 Date of Service: May 01, 2025 Billing Provider: BERNARDO EVANGELISTA MD Common Visit Codes: 62034-[id number] INP/OBS CARE (HIGH) Secondary Visit Codes: 62459-[id number] CARE PLAN 30 MINUTES CARLOS LEO May 01, 2025 23:08
[2025-05-01] MEDS: SODIUM CHLORIDE 0.9% 1,000 ML IV SCH (23:42)
--- NOTE | 2025-05-02 00:35 | DVH ---
Exam: CT CT AB PEL WO CON-NO ORAL OR IV History: Abdominal pain Comparison Study: CT CT AB PEL WO CON-NO ORAL OR IV on DOS: 03/20/25 TECHNIQUE: Multidetector CT of the abdomen and pelvis was performed from lung bases to pubic symphysi s. Imaging was performed without IV contrast. Axial, coronal, and sagittal multiplanar reformats were obtained from the axial data set by the technologist. RADIATION DOSE: CTDI vol 6.82 mGy. DLP 530.87 mGy.cm Findings: Limited evaluation of the solid organs in the absence of IV contrast. Liver: Unremarkable. Spleen: Unremarkable. Pancreas: Unremarkable. Gallbladder: Unremarkable. No CT evidence of acute cholecystitis. Adrenals: Unremarkable Kidneys: No hydronephrosis. Redemonstrated 1.9 cm exophytic rim calcified left renal cyst. Pelvic Viscera: Marked prostatomegaly. Vasculature: Mild atherosclerotic aortoiliac calcifications. Retroperitoneum: Unremarkable. Bowel: No bowel obstruction. No CT evidence of diverticulitis or appendicitis. Musculoskeletal: Thoracolumbar DISH is present. Soft tissues: Tiny fat containing umbilical hernia. Lungs: Basilar atelectasis/scarring. Impression: 1. No acute abdominopelvic abnormality identified. 2. Incidental findings as detailed.
[2025-05-02 04:00] LABS: Hematocrit 42.3 % (41.0-53.0); Hemoglobin 14.6 g/dL (13.5-17.5); Mean Corpuscular Hemoglobin 31.4 pg (28.0-32.0); Mean Corpuscular Volume 90.9 fL (80.0-100.0); Nucleated Red Blood Cells % 0.2 %
[2025-05-02 04:20] LABS: Alanine Aminotransferase 14 U/L (7-40); Albumin 3.7 g/dL (3.2-4.8); Anion Gap 8 (5-15); BUN/Creatinine Ratio 22.5 (10.0-20.0); Bilirubin, Total 1.2 mg/dL (0.2-1.0); Blood Urea Nitrogen 16 mg/dL (9-23); Calcium 9.0 mg/dL (8.7-10.4); Carbon Dioxide 26 mmol/L (20-31); Glucose 98 mg/dL (74-106); Magnesium 2.1 mg/dL (1.6-2.6); Potassium 3.7 mmol/L (3.5-5.1); Sodium 144 mmol/L (136-145); Total Protein 6.2 g/dL (5.7-8.2)
--- NOTE | 2025-05-02 04:33 | ECG ---
[facility] Test Date: 2025-05-01 Test Time: 11:40:37 Pat Name: HAYLEE CHAUHAN Department: ER Room: 0248 A Gender: M [employer]: LARRY : 1950 Requested By: JEANINE JONES Order Number: [id number] Reading MD: Miguel King Measurements Intervals [place] Rate: 67 P: 0 ND: 75 QRS: 113 QRSD: 110 T: -3 QT: 415 QTc: 438 Interpretive Statements Sinus rhythm Short ND interval Right axis deviation Borderline T wave abnormalities Baseline wander in lead(s) V6 Electronically Signed On 05-02-2025 19:31:36 PDT by Miguel King Please click the below link to view image of tracing.
[2025-05-02 04:37] LABS: Alkaline Phosphatase 143 U/L (46-116); Chloride 110 mmol/L (98-107)
[2025-05-02 05:11] VITALS: BP 144/75; PULSE 44; PULSE 74; PULSE 77; RESP 18; TEMP 97.2; O2SAT 96; O2SAT 98
[2025-05-02] MEDS: TAMSULOSIN HYDROCHLORIDE 0.4 MG CAP PO ONE (05:22)
[2025-05-02 08:15] VITALS: PULSE 51; RESP 16; O2SAT 95
[2025-05-02 09:00] VITALS: BP 130/52; PULSE 51; RESP 16; TEMP 98.6; O2SAT 95
[2025-05-02] MEDS: ENOXAPARIN SOD 40 MG/0.4 ML SYRINGE SC SCH (09:15)
[2025-05-02] MEDS: PANTOPRAZOLE 40 MG/10 ML VIAL INJ IV SCH (11:33)
[2025-05-02] MEDS: SUCRALFATE 1 GM/10 ML ORAL SUSP GT SCH (11:33)
[2025-05-02 13:00] VITALS: BP 155/66; PULSE 57; RESP 16; TEMP 98.2; O2SAT 94
[2025-05-02] MEDS ORDERED: LACTATED RINGER'S 500 ML IV SCH (13:15)
--- NOTE | 2025-05-02 13:52 | DVHDSRES ---
Discharge Summary Date of Admission Resident Creating Document: INDY JOEL RESIDENT May 01, 2025 at 22:57 Date of Discharge: May 02, 2025 Admitting Diagnosis Acute abdomincal pain, likely due to possible Acute gastritis Wounds: No large wounds. Labs/Diagnostic Data: Laboratory Results Test 05/02/25 03:35 05/01/25 16:27 05/01/25 12:38 White Blood Count 5.6 10^3/uL (4.4-10.8) Red Blood Count 4.65 10^6/uL (4.5-5.90) Hemoglobin 14.6 g/dL (13.5-17.5) Hematocrit 42.3 % (41.0-53.0) Mean Corpuscular Volume 90.9 fL (80.0-100.0) Mean Corpuscular Hemoglobin 31.4 pg (28.0-32.0) Mean Corpuscular Hemoglobin Concent 34.6 g/dL (32.0-36.0) Red Cell Distribution Width 14.2 % (11.8-14.3) Platelet Count 193 10^3/uL (140-450) Mean Platelet Volume 8.1 fL (6.9-10.8) Neutrophils (%) (Auto) 47.3 % (37.0-80.0) Lymphocytes (%) (Auto) 37.5 % (10.0-50.0) Monocytes (%) (Auto) 12.0 % (0.0-12.0) Eosinophils (%) (Auto) 2.7 % (0.0-7.0) Basophils (%) (Auto) 0.5 % (0.0-2.0) Neutrophils # (Auto) 2.6 10 ^3/uL (1.6-8.6) Lymphocytes # (Auto) 2.1 10 ^3/uL (0.4-5.4) Monocytes # (Auto) 0.7 10 ^3/uL (0-1.3) Eosinophils # (Auto) 0.2 10 ^3/uL (0-0.8) Basophils # (Auto) 0 10 ^3/uL (0-0.2) Nucleated Red Blood Cells 0.2 % Sodium Level 144 mmol/L (136-145) Potassium Level 3.7 mmol/L (3.5-5.1) Chloride Level 110 mmol/L (98-107) Carbon Dioxide Level 26 mmol/L (20-31) Anion Gap 8 (5-15) Blood Urea Nitrogen 16 mg/dL (9-23) Creatinine 0.71 mg/dL (0.700-1.30) Glomerular Filtration Rate Calc 97 mL/min (>90) BUN/Creatinine Ratio 22.5 (10.0-20.0) Serum Glucose 98 mg/dL (74-106) Hemoglobin A1c 5.6 % A1C (<5.7) Calcium Level 9.0 mg/dL (8.7-10.4) Magnesium Level 2.1 mg/dL (1.6-2.6) Total Bilirubin 1.2 mg/dL (0.2-1.0) Aspartate Amino Transferase (AST) 16 U/L (13-40) Alanine Aminotransferase (ALT) 14 U/L (7-40) Alkaline Phosphatase 143 U/L (46-116) Total Protein 6.2 g/dL (5.7-8.2) Albumin 3.7 g/dL (3.2-4.8) Vitamin B12 Level 174 pg/mL (211-911) Vitamin D 25-Hydroxy 36.6 ng/mL (30.0-100) Folic Acid 20.40 ng/mL (>5.38) Free Thyroxine (T4) Calculated 1.14 ng/dL (0.89-1.76) Urine Color Yellow (Yellow) Urine Clarity Clear (Clear) Urine pH 5.5 (5.0-9.0) Urine Specific [place] 1.031 (1.001-1.035) Urine Protein Trace (Negative) Urine Ketones Trace (Negative) Urine Blood Negative /uL (Negative) Urine Nitrite Negative (Negative) Urine Bilirubin Negative (Negative) Urine Urobilinogen Normal mg/dL (Negative) Urine Leukocyte Esterase Negative /uL (Negative) Urine RBC 3 /hpf (0 - 3) Urine Microscopic WBC 3 /HPF (0-3) Urine Squamous Epithelial Cells None seen /hpf (<5) Urine Bacteria None seen /hpf (None Seen) Urine Mucus Few (None Seen) Urine Glucose Normal mg/dL (Normal) Lipase 34 U/L (12-53) Thyroid Stimulating Hormone (TSH) 0.51 uIU/mL (0.55-4.78) Other Laboratory Tests 05/02/25 03:35 Brief Hx & Hospital Course: Patient is 74 years old male with past medical history of hypertension-not taking any medication came with a complaint of abdominal pain. As per patient he has been having epigastric abdominal pain for last 3 months which got worse 2 days before. As per patient pain is in the epigastric region, 9/10, constant, burning, crampy in nature, intermittent, no aggravating or relieving factor. Patient reported nausea but no vomiting. He also complains of dysuria, burning micturition since last 2 days. No associated fever chills, nausea, vomiting, chest pain or shortness of breath, palpitation, eating unusual food, dysarthria. Chronic umbilical hernia seen on examination, no tenderness or signs of strangulation. No tenderness or abnormal finding on examination. His lab workup revealed lipase within normal limit, serum bilirubin 1.1, alkaline phosphatase 165, urinalysis negative for UTI. Ultrasound of the liver is negative for acute abnormality. CT abdominal and pelvis revealed prostatomegaly, tiny fat containing umbilical hernia, bilateral atelectasis/scarring. IV RL given to improve intravascular volume, pantoprazole and sucralfate given. His condition has stabilized. Consults/Reason for consult CT CT AB PEL WO CON-NO ORAL OR IV History: Abdominal pain Comparison Study: CT CT AB PEL WO CON-NO ORAL OR IV on DOS: 03/20/25 TECHNIQUE: Multidetector CT of the abdomen and pelvis was performed from lung bases to pubic symphysis. Imaging was performed without IV contrast. Axial, coronal, and sagittal multiplanar reformats were obtained from the axial data set by the technologist. RADIATION DOSE: CTDI vol 6.82 mGy. DLP 530.87 mGy.cm Findings: Limited evaluation of the solid organs in the absence of IV contrast. Liver: Unremarkable. Spleen: Unremarkable. Pancreas: Unremarkable. Gallbladder: Unremarkable. No CT evidence of acute cholecystitis. Adrenals: Unremarkable Kidneys: No hydronephrosis. Redemonstrated 1.9 cm exophytic rim calcified left renal cyst. Pelvic Viscera: Marked prostatomegaly. Vasculature: Mild atherosclerotic aortoiliac calcifications. Retroperitoneum: Unremarkable. Bowel: No bowel obstruction. No CT evidence of diverticulitis or appendicitis. Musculoskeletal: Thoracolumbar DISH is present. Soft tissues: Tiny fat containing umbilical hernia. Lungs: Basilar atelectasis/scarring. Impression: 1. No acute abdominopelvic abnormality identified. 2. Incidental findings as detailed. --- RIGHT UPPER QUADRANT ABDOMINAL ULTRASOUND CLINICAL HISTORY: pain COMPARISON: CT 03/20/2025 TECHNIQUE: Grayscale and color Doppler ultrasound imaging of the right upper quadrant is performed. FINDINGS: Pancreas: Obscured by artifact from bowel gas. Liver: Measures approximately 14.5 cm in length. No discrete hepatic lesions as visualized. The portal vein appears patent. Gallbladder: No sizable, shadowing calculi. No gallbladder wall thickening. No sonographic farooq's sign. Common bile duct: Nondilated. Right Kidney: Measures approximately 12.5 cm in length. No hydronephrosis. Right upper quadrant Inferior vena cava: Visualized portions appear grossly patent. IMPRESSION: No acute findings as visualized. Condition at Discharge: Stable Final Diagnosis/Problems List Acute abdomincal pain, likely due to below: Possible Acute gastritis Possible peptic ulcer disease Acute on chronic lower back pain likely musculoskeletal Chronic Umbilical hernia- Non- strangulated/ asymptomatic Intravascular volume depletion without JULITA Primary Hypertesnion Discharge Disposition: Home Discharge Instruct/Medications Diet: Regular, Cardiac 2g Na,low cholest Diet comment: Low sodium diet Activity: No Restrictions, As Tolerated Follow Up/Referral: Follow up with PCP in 1 week Medications: Take Sucralfate 1 gm twice daily for 20 days Take pantoprazole 40 mg daily for 30 days Care Plan: Care plan: Please follow up with PCP in 1 week Please Take Sucralfate 1 gm twice daily for 20 days Please Take pantoprazole 40 mg daily for 30 days Scheduled Ciprofloxacin Hcl (Cipro), 1 TAB PO BID Metronidazole (Flagyl), 1 TAB PO TID Pantoprazole Sodium Sesquihydr (Pantoprazole Sodium), 40 MG PO DAILY Sucralfate (Sucralfate), 1 GM PO BID Scheduled PRN Acetaminophen (Tylenol Extra Strength), 1,000 MG PO Q6HP PRN Loperamide Hcl (Imodium), 2 MG PO Q6HP PRN Ondansetron Odt 4MG Tab (Zofran Po), 4 MG PO TID PRN Discharge Statement: "Patient was advised to return to the ER or call 911 if any headaches, dizziness, shortness of breath, chest pain, abdominal pain, bleeding, fevers, or worsening of medical condition. Patient was counseled about treatment plan, medications, possible side effects, patientverbalized understanding. All questions were answered to the best of my ability. This discharge took greater then 30 minutes in planning, reviewing documentation, counseling the patient, and discussing with other team members." ASSESSMENT ASSESSMENT Assessment Acute abdomincal pain, likely due to below: Possible Acute gastritis Possible peptic ulcer disease Acute on chronic lower back pain likely musculoskeletal Chronic Umbilical hernia- Non- strangulates/ asymptomatic Intravascular volume depletion without JULITA Primary Hypertesnion Date of Service: May 02, 2025 Billing Provider: RENEE SELBY MD Common Visit Codes: 89937-QTG/OBS DISCH DAY >30min INDY JOEL RESIDENT May 02, 2025 13:52 RENEE SELBY MD May 02, 2025 21:48
[2025-05-02 16:24] VITALS: BP 155/66; PULSE 57; RESP 16; TEMP 98.2; O2SAT 97
[2025-05-02] MEDS ORDERED: PANT40T PO (16:25)
[2025-05-02] MEDS ORDERED: SUCR1TAB PO (16:25)
[2025-05-02 17:00] VITALS: BP 100/49; PULSE 51; RESP 16; TEMP 98.2; O2SAT 98
[2025-05-02] MEDS ORDERED: TAMSULOSIN HYDROCHLORIDE 0.4 MG CAP PO SCH (18:00)
== END 2025-05-02 17:48 | disposition home or self-care (01) | DRG 384 ==
LOC: ER 11:14 → OVERFLOW 22:57 → EAST 05-02 03:39
PROVIDERS: ADMIT Student in an Organized Health Care Education/Training Program; ATTEND Student in an Organized Health Care Education/Training Program
DX: K27.9 Peptic ulcer, site unspecified, unspecified as acute or chronic, without hemorrhage or perforation (principal); K29.00 Acute gastritis without bleeding; I10 Essential (primary) hypertension; K42.9 Umbilical hernia without obstruction or gangrene; N40.0 Benign prostatic hyperplasia without lower urinary tract symptoms; G89.29 Other chronic pain; E86.9 Volume depletion, unspecified; Z79.2 Long term (current) use of antibiotics; Z79.899 Other long term (current) drug therapy
CPT/HCPCS: 36415; 74176; 76705; 80053; 81001; 82306; 82607; 82746; 83036; 83690; 83735; 84439; 84443; 85025; 93005; 96374; 96375; G0378; J2405; J2470